=== PATIENT | female | born 1960 | race Caucasian/White ===

== ENCOUNTER → 2018-09-13 | Outpatient (CLI) | payer BC ==
--- NOTE | 2018-09-13 15:47 | PCVCIMAG ---
APPROVED REPORT Study performed: 09/13/2018 14:31:24 EXAM: Comprehensive 2D, Doppler, and color-flow Echocardiogram Patient Location: Echo lab Status: routine BSA: 1.69 HR: 59 bpmBP: 104/60 mmHg Rhythm: Bradycardia Other Information Study Quality: Adequate Indications Dyspnea Pericardial Effusion PACs 2D Dimensions IVSd: 9.57 (7-11mm) LVDd: 36.32 mm PWd: 8.34 (7-11mm) LVDs: 24.25 (25-40mm) Left Atrium: 34.90 (27-40mm) Aortic Root: 30.96 mm LV Single Plane 4CH: 65.69 % LV Single Plane 2CH: 70.53 % Biplane EF: 68.1 % Volumes Left Atrial Volume (Systole) Single Plane 4CH: 54.31 mLSingle Plane 2CH: 41.24 mL Aortic Valve AoV Peak Rasheed.: 1.39 m/s AO Peak Gr.: 7.73 mmHgLVOT Max P.46 mmHg LVOT Max V: 1.06 m/s Mitral Valve E/A Ratio: 2.2 MV Decel. Time: 165.65 ms MV E Max Rasheed.: 0.75 m/s MV A Rasheed.: 0.34 m/s IVRT: 107.27 ms Pulmonary Valve PV Peak Rasheed.: 0.86 m/sPV Peak Gr.: 2.94 mmHg WA End Vmax: 28.00 m/s Pulmonary Vein P Vein S: 0.41 m/sP Vein A: 0.32 m/s P Vein D: 0.60 m/sP Vein A Dur.: 114.2 msec P Vein S/D Ratio: 0.68 Tricuspid Valve TR Peak Rasheed.: 2.45 m/s TR Peak Gr.: 23.93 mmHg TV Vmax: 0.46 m/s Left Ventricle The left ventricle is normal size. There is normal LV segmental wall motion. There is normal left ventricular wall thickness. Left ventricular systolic function is normal. The left ventricular ejection fraction is within the normal range. LVEF is 65%. The left ventricular diastolic function is normal. Right Ventricle The right ventricle is normal size. The right ventricular systolic function is normal. Atria The left atrium size is normal. The right atrium size is normal. Aortic Valve The aortic valve is normal in structure. No aortic regurgitation is present. There is no aortic valvular stenosis. Mitral Valve The mitral valve is normal in structure. Trace mitral regurgitation. No evidence of mitral valve stenosis. Tricuspid Valve The tricuspid valve is normal in structure. Mild tricuspid regurgitation with PAP of 31 mmHg. Pulmonic Valve The pulmonary valve is normal in structure. There is no pulmonic valvular regurgitation. Great Vessels The aortic root is normal in size. IVC is normal in size and collapses >50% with inspiration. Pericardium There is no pericardial effusion. There is no pleural effusion. <Conclusion> The left ventricle is normal size. There is normal left ventricular wall thickness. Left ventricular systolic function is normal. The left ventricular diastolic function is normal. The right ventricle is normal size. The left atrium size is normal. The aortic valve is normal in structure. Trace mitral regurgitation. Mild tricuspid regurgitation with PAP of 31 mmHg.
--- NOTE | 2018-09-13 15:50 | PCVCIMAG ---
APPROVED REPORT Study performed: 09/13/2018 15:07:07 Exam: Stress Echocardiogram Indication: Dyspnea, PACs Patient Location: Echo lab Stress Nurse: Noy Drummond RN Status: routine Ht: 5 ft 2 in HR: 66 bpm BP: 104/60 mmHg Rhythm: NSR Procedure The patient underwent an Exercise Stress Test using the Mark Protocol. Blood pressure, heart rate, and EKG were monitored. An Echocardiogram was performed by blood bank laboratory technician in four stages in quad fashion. At peak stress, four selected images were obtained and placed side by side with resting images for comparison. Stress Test Details Stress Test: Exercise stress testing was performed using a Mark protocol. HR Resting HR: 66 bpmMax Heart Rate (APMHR): 164 bpm Max HR Achieved: 153 bpmTarget HR (85% APMHR): 139 bpm % of APMHR: 93 Recovery HR: 88 bpm HR response to stress: Normal HR response to stress BP Resting BP: 104/60 mmHg Max BP: 146/60 mmHg Recovery BP: 120/60 mmHg BP response to stress: Normal blood pressure response to stress. ECG Resting ECG: Sinus Rhythm Stress ECG: Sinus Rhythm ST Change: borderline Arrhythmia: None Recovery ECG: Sinus Rhythm Recovery ST Change: Normal Recovery Arrhythmia: None Clinical Reason for Termination: Maximal effort, dyspnea Stress Symptoms: Dyspnea Exercise duration: 9 min 40 sec Highest Stage Achieved: Stage 4: 4.2 mph at 16% grade. Exercise capacity: 12.3 METs Overall Exercise Capacity for Age: Normal Scale: Active Angina Score: None Pre-Stress Echo The resting Echocardiogram showed normal left ventricular contractility with an estimated Ejection Fraction of about >55%. Normal wall motion in all segments on baseline images. Post-Stress Echo The stress Echocardiogram showed normal left ventricular contractility with an estimated Ejection Fraction of about 65%. Normal augmentation of wall motion in all segments on post stress images. Clinical No clinical or ECG evidence for ischemia. Conclusion Clinical Response: Non-ischemic Exercise Capacity: Average Stress ECG Response: Equivocal Stress Echo Images: Non-ischemic The left ventricle is normal in size and wall thickness in both the rest and stress images. Other Information Study Quality: Adequate <Conclusion> The left ventricle is normal in size and wall thickness in both the rest and stress images.
== END | disposition home or self-care (01) ==
LOC: PCVCIMAG 14:37
PROVIDERS: ATTEND Internal Medicine Cardiovascular Disease
DX: J90 Pleural effusion, not elsewhere classified (principal); E78.00 Pure hypercholesterolemia, unspecified; R06.09 Other forms of dyspnea; R60.9 Edema, unspecified; Z88.8 Allergy status to other drugs, medicaments and biological substances; Z88.0 Allergy status to penicillin; Z91.018 Allergy to other foods; Z87.891 Personal history of nicotine dependence
CPT/HCPCS: 93306; 93351